=== PATIENT | female | born 1990 | race Caucasian/White ===

== ENCOUNTER 2018-01-07 12:11 | Emergency (ER) | payer OTHER, SELFPAY ==
[2018-01-07 12:12] VITALS: BP 100/60; PULSE 90; RESP 16; TEMP 36.3; O2SAT 99; BMI 24.7
--- NOTE | 2018-01-07 12:27 | CT_ITS ---
STUDY: CT ABDOMEN AND PELVIS WITH CONTRAST REASON FOR EXAM: Female, 27 years old. Right lower quadrant pain, nausea and vomiting. Patient is 33 weeks . RADIATION DOSAGE (If Supplied By Facility): CTDIvol = ( 9.23 ) mGy, DLP = ( 376.51 ) mGycm TECHNIQUE: Transaxial images were obtained from the dome of the diaphragm to the symphysis pubis with oral contrast. 100 ml of Isovue 300 contrast was administered. Sagittal and coronal images were reconstructed. Individualized dose optimization techniques were used for this CT. COMPARISON: None. FINDINGS: The visualized lung bases are unremarkable. The visualized portions of the heart are within normal limits. Normal liver. Normal gallbladder and extrahepatic biliary system. Normal spleen. Normal pancreas. Normal bilateral adrenal glands. Normal right kidney. Normal left kidney. Normal visualized stomach. Normal small intestine. Normal colon. The appendix is visualized and appears normal. Normal abdominal aorta. Normal inferior vena cava. Normal retroperitoneum. Normal urinary bladder. There is a single intrauterine fetus, with the head in the right upper abdomen. The bladder is identified. A small amount of fluid seen within the stomach. The placenta is anteriorly positioned. Normal abdominal wall. Normal osseous structures. CT/Abdomen/Pelvis WITH Contrast IMPRESSION: Single intrauterine . The appendix is normal. No bowel obstruction or acute renal pathology. Electronically Signed: Grzegorz Verdin DO at 14:51 EST Tel , Service support ,
[2018-01-07] MEDS: 0.9% Normal Saline 1,000 ML 125 ML IV (12:49)
[2018-01-07] MEDS: Ondansetron 4 MG/2 ML Vial IV (12:49)
[2018-01-07 12:53] LABS: Absolute Lymphocyte Count 1.43 X10^3/ul (0.83-4.51); Basophil# 0.01 X10^3/uL; Basophil% 0.1 % (0-1); Eosinophil# 0.05 X10^3/uL; Eosinophils% 0.7 % (0-5); Hematocrit 30.2 % (37-47); Hemoglobin 10.2 g/dl (12.0-15.0); Lymphocyte # 1.43 X10^3/ul (4.0); Mean Corp Hgb Conc 33.8 g/gl (32-36); Mean Corpuscular Hgb 30.4 pg (27.0-32.0); Mean Corpuscular Volume 90.1 fL (81-99); Mean Platelet Vol. 9.6 fl (6.2-12.0); Monocyte# 0.63 X10^3/uL; Monocyte% 8.8 % (0-10); Neutrophil # 4.99 X10^3/uL (2.7-7.7); Neutrophil % 69.7 % (47-70); Platelet Count 179 K/mm3 (150-450); RBC Distribution Width CV 13.5 % (11.6-14.6); RBC Distribution Width SD 43.7 fl (35.1-43.9); Red Blood Count 3.35 M/mm3 (4.2-5.4); White Blood Count 7.2 K/mm3 (4.4-11.0)
[2018-01-07 12:56] LABS: POSITIVE COUNT NO; POSITIVE DIFFERENTIAL NO; POSITIVE MORPHOLOGY NO
[2018-01-07 13:01] LABS: ALB/GLOB Ratio 0.7 RATIO (0.9-2.4); AST(SGOT) 12 U/L (15-37); Alanine Aminotransfer ALT/SGPT 13 U/L (13-56); Albumin, Serum 2.5 g/dL (3.2-5.0); Alkaline Phosphatase 82 U/L (45-117); Anion Gap 9 (5-15); BUN 4 mg/dL (7-18); BUN/Creat Ratio 7.4 RATIO (10-20); Calcium,Total 8.1 mg/dL (8.5-10.1); Chloride 107 mmol/L (98-107); Creatinine, Serum 0.54 mg/dL (0.55-1.02); EST Glomerular Filtration Rate 142 mL/min (>60); Est Glom Filt Rate - Afr Amer 172 mL/min (>60); Globulin 3.8 g/dL (2.2-4.2); Glucose 74 mg/dL (74-106); Lipase 143 U/L (73-393); Potassium 3.4 mmol/L (3.5-5.1); Protein, Total 6.3 g/dL (6.4-8.2); Sodium Level 139 mmol/L (136-145)
--- NOTE | 2018-01-07 13:04 | ED.VISSUMM ---
- ER Visit Summary Date of Service: 01/07/18 Chief Complaint: [Abdominal pain] History of Present Illness: The patient is a 27 F [presents with right lower quadrant abdominal pain ?2 days. Patient was seen at [facility] yesterday and had a urinalysis that showed questionable signs of urinary tract infection. Her urine was then sent for culture. No treatment was initiated. Patient also having vomiting. Patient states she had 3 episodes of watery stool yesterday but none since. Patient denies fever. Patient denies urinary symptoms. Patient is and currently 33 weeks .] Patient was seen by Dr. Luke in the office today who had concern for appendicitis therefore she was told to come to the emergency department as she would need a CT scan of her abdomen and pelvis. Dr. Luke did discuss risk versus benefit of CT scan with the patient and she understands and would like to proceed with obtaining the scan. Physical Examination: HEENT-PERRLA, EOMI. Cranial nerves II through XII grossly intact. TMs clear. Mucous membranes moist. No adenopathy. Cardiovascular-regular rate and rhythm without murmur or ectopy Lungs-clear to auscultation, chest wall stable without crepitus or subcu emphysema Abdomen-normoactive bowel sounds, soft, patient has tenderness over the right lower quadrant with guarding. Patient has a gravid uterus that is nontender. There is no rebound, rigidity, or peritoneal signs. Extremities-intact ?4, normal range of motion, normal pulses, atraumatic[] Test Results: [CBC with differential obtained showed a white blood cell count of 7.2, heme globin 10, hematocrit 30, platelets 179. Chemistries unremarkable. LFTs and lipase unremarkable. Urinalysis was unremarkable. CT scan of the abdomen and pelvis with IV and p.o. contrast showed a normal appendix and essentially nothing acute. Emergency Department Course and Treatment: [She was medicated with Zofran for her nausea. Patient did not want anything for pain.] Treatment Plan: [She will be given a prescription for Zofran and advised to follow-up with her TELEVISION NEWS VIDEO EDITOR within next 3-5 days.] Disposition: [Discharged to home in stable condition] Impression: [Abdominal pain-etiology uncertain] This note was generated with Purswayation software. It may contain incorrect words, spelling, and punctuation that were not noted in review of the chart prior to signing ED Disposition - Plan for ED Patient: Chief Complaint: Abd Pain Referrals: Care Physician,No Primary [Primary Care Provider] -
--- NOTE | 2018-01-07 13:07 | ED.DCSUM_ITS ---
- ER Visit Summary Date of Service: 01/07/18 Chief Complaint: [Abdominal pain] History of Present Illness: The patient is a 27 F [presents with right lower quadrant abdominal pain ?2 days. Patient was seen at [facility] yesterday and had a urinalysis that showed questionable signs of urinary tract infection. Her urine was then sent for culture. No treatment was initiated. Patient also having vomiting. Patient states she had 3 episodes of watery stool yesterday but none since. Patient denies fever. Patient denies urinary symptoms. Patient is and currently 33 weeks .] Patient was seen by Dr. Luke in the office today who had concern for appendicitis therefore she was told to come to the emergency department as she would need a CT scan of her abdomen and pelvis. Dr. Luke did discuss risk versus benefit of CT scan with the patient and she understands and would like to proceed with obtaining the scan. Physical Examination: HEENT-PERRLA, EOMI. Cranial nerves II through XII grossly intact. TMs clear. Mucous membranes moist. No adenopathy. Cardiovascular-regular rate and rhythm without murmur or ectopy Lungs-clear to auscultation, chest wall stable without crepitus or subcu emphysema Abdomen-normoactive bowel sounds, soft, patient has tenderness over the right lower quadrant with guarding. Patient has a gravid uterus that is nontender. There is no rebound, rigidity, or peritoneal signs. Extremities-intact ?4, normal range of motion, normal pulses, atraumatic[] Test Results: [CBC with differential obtained showed a white blood cell count of 7.2, heme globin 10, hematocrit 30, platelets 179. Chemistries unremarkable. LFTs and lipase unremarkable. Urinalysis was unremarkable. CT scan of the abdomen and pelvis with IV and p.o. contrast showed a normal appendix and essentially nothing acute. Emergency Department Course and Treatment: [She was medicated with Zofran for her nausea. Patient did not want anything for pain.] Treatment Plan: [She will be given a prescription for Zofran and advised to follow-up with her INSIDE SALES AGENT within next 3-5 days.] Disposition: [Discharged to home in stable condition] Impression: [Abdominal pain-etiology uncertain] This note was generated with Official Limited Virtualation software. It may contain incorrect words, spelling, and punctuation that were not noted in review of the chart prior to signing ED Disposition - Plan for ED Patient: Chief Complaint: Abd Pain Referrals: Care Physician,No Primary [Primary Care Provider] -
[2018-01-07 13:19] LABS: Pregnancy, Serum, hCG Quali. POSITIVE Negative (0-9 Nonpreg)
[2018-01-07 15:59] LABS: Bacteria 0 SEEN /hpf (None Seen); Mucous, Urine 0 SEEN /hpf (<or=2+); Red Blood Cells-Urine 0 SEEN /hpf (0-5)
[2018-01-07 16:08] LABS: Color, Urine Yellow (Yellow); Glucose, Dipstick Normal (Normal); Leukocyte Esterase-Dipstick 25 /ul (Negative); Nitrite-Dipstick Negative (Negative); Occult Blood-Urine Negative /ul (Negative); Protein-Dipstick Negative (Negative); Specific Gravity, Urine 1.005 (1.002-1.030); Urine Bilirubin Dipstick Negative (Negative); Urine Clarity Sl. Cloudy (Clear); Urine Urobilinogen Normal (Normal)
[2018-01-07 16:23] LABS: Ketone-Dipstick 150 mg/dl (Negative)
[2018-01-07 16:34] LABS: Squamous Epithelial Cells - UA 0-5 SEEN /hpf (5-10); White Blood Cells 0-5 SEEN /hpf (0-5)
--- NOTE | 2018-01-07 16:42 | ED.DEP ---
ED Disposition - Plan for ED Patient: Chief Complaint: Abd Pain Instructions: ED Abdominal Pain Unkn Cause Prescriptions: Ondansetron [Zofran Odt] 4 mg PO Q8H PRN PRN #10 tab PRN Reason: Nausea Referrals: Care Physician,No Primary [Primary Care Provider] - Stella Love MD [STAFF PHYSICIAN] - 3-5 Days
[2018-01-07 16:51] VITALS: BP 103/61; PULSE 61; RESP 14; O2SAT 99
== END 2018-01-07 16:52 | disposition home or self-care (01) ==
PROVIDERS: Emergency Provider Emergency Medicine
DX: O26.893 Other specified pregnancy related conditions, third trimester (principal); R10.31 Right lower quadrant pain; O99.333 Smoking (tobacco) complicating pregnancy, third trimester; Z3A.33 33 weeks gestation of pregnancy
CPT/HCPCS: 74177; 80053; 81001; 83690; 84703; 85025; 96361; 96374; 99283; J7030; Q9967; A4216; J2405

== ENCOUNTER 2018-02-19 07:09 | Inpatient (IN) | payer OTHER, SELFPAY ==
[2018-02-19 07:15] VITALS: BMI 25.0
--- NOTE | 2018-02-19 07:42 | PCM.HP.OB ---
History Date of Admission: 02/19/18 Final LEE: 02/25/18 Final LEE Source: LMP Gestational age: 39 Weeks and 1 Days Pertinent Past Medical History: @ 39.1 wks here for IOL due to IUGR <4%. PMH: Tobacco abuse, Abnormal pap, anxiety PSX: LEEP, D&C for first trimester sab. Allergies azithromycin [From Zithromax Z-Brayden] Allergy (Verified 01/07/18 12:50) Hives codeine Allergy (Verified 01/07/18 12:50) Hives Penicillins Allergy (Verified 01/07/18 12:50) Hives pseudoephedrine HCl [From Sudafed] Allergy (Verified 01/07/18 12:50) Hives Sulfa (Sulfonamide Antibiotics) Allergy (Verified 01/07/18 12:50) Hives sulfamethoxazole [From Bactrim] Allergy (Verified 01/07/18 12:50) Hives trimethoprim [From Bactrim] Allergy (Verified 01/07/18 12:50) Hives Smoking Status: Current every day smoker Alcohol: None Drug Use: marijuana - no use in Number of Fetus(es): 1 Physical Exam General: Alert, Oriented x3 Abdomen: Soft, Non Tender, Gravid Estimated gestational size: Small for gestational age Presentation: Cephalic Assessment/Plan 27yo @ 39.1 wks, IUGR <4% here for Induction of labor 1) admit to L&D 2) monitor FHR and toco 3) Pitocin and likely donald balloon for IOL 4) anticipate 5) Epidural if requested for pain 6) Labs reviewed- GBS neg, B+, HIV Neg, HEP B neg, rub imm, syphilis neg
[2018-02-19] MEDS: Lactated Ringers 1,000 ML 50 ML IV ×2 (09:30→16:28)
[2018-02-19] MEDS: Oxytocin 30 units/NS 500 ml 30 UNITS/500 ML IV.SOLN IV (09:30)
[2018-02-19 09:39] LABS: Hematocrit 30.2 % (37-47); Hemoglobin 10.1 g/dl (12.0-15.0); Mean Corp Hgb Conc 33.4 g/gl (32-36); Mean Corpuscular Volume 89.6 fL (81-99); Mean Platelet Vol. 10.4 fl (6.2-12.0); Platelet Count 190 K/mm3 (150-450); RBC Distribution Width CV 13.5 % (11.6-14.6); RBC Distribution Width SD 42.7 fl (35.1-43.9); Red Blood Count 3.37 M/mm3 (4.2-5.4); Scan Indicated on CBC? Y/N NO; White Blood Count 8.5 K/mm3 (4.4-11.0)
[2018-02-19 10:51] LABS: Amphetamine Urine VISTA NEGATIVE (<1000 ng/mL); Barbiturate Urine VISTA NEGATIVE (< 200 ng/mL); Benzodiazepine Urine VISTA NEGATIVE (< 200 ng/mL); Cocaine Urine VISTA NEGATIVE (< 300 ng/mL); Ecstacy Urine VISTA NEGATIVE (< 500 ng/mL); Methadone Urine VISTA NEGATIVE (< 300 ng/mL); PCP Urine VISTA NEGATIVE (< 25 ng/mL); THC Urine VISTA POSITIVE (< 50 ng/mL); Vista UDS pH Range 7
--- NOTE | 2018-02-19 12:24 | PCM.PN.BLA ---
Progress Note pt seen at bedside, doing well. VE: 3-/-2 AROM performed- clear fluid. IUPC placed. Continue pitocin- FHR reviewed cat 1 reactive. Anticipate
[2018-02-19] MEDS: Ondansetron 4 MG/2 ML Vial IV (17:20)
--- NOTE | 2018-02-19 17:20 | PLAC_PTH ---
PATIENT: CORRY CHOE LOC: [facility] U#:[id number] AGE/SX: 27/F ROOM: WP009 RE02/19/[address]: Dr. Gladis Otero, MDDOB: 1990 BED: 1 DIS: 02/21/2018 SPEC #: [id number] RECD: 02/19/18 23:10 STATUS: MILIND BALDEMAR #: [id number] JOCELYN: 02/19/18 17:[address]: Gladis Otero DEPT: SURGICAL PATHOLOGY RECD BY: Raza Lombardi ENTERED: 02/20/18 08:07 SP TYPE: PLACENTA OTHR DR: Dr. Stella Love MD No Primary Care Phys Tissues: Placenta, NOS Procedures: Surgery Specimen Level V HEADER OPERATION: Vaginal delivery PRE-OP DIAGNOSIS: IUGR TISSUE SUBMITTED: Placenta MICROSCOPIC DIAGNOSIS Placenta: Placental disc - third trimester placenta (287 gm). Membranes - no pathologic diagnosis. Umbilical cord - three blood vessels and no pathologic diagnosis. SJ:oriana 02/21/18 MICROSCOPIC DESCRIPTION Slides are reviewed. GROSS DESCRIPTION SPECIMEN: PLACENTA / CLINICAL INFORMATION: A. Weight: 2.587 kg B. Gestational Age: 39 weeks C. Sex: Male PLACENTAL WEIGHT (POST FIXATION): 287 gm PLACENTAL DIMENSIONS: 16 x 14 x 2.5 cm PLACENTAL SHAPE: Usual ovoid PLACENTAL WEIGHT FOR GESTATIONAL AGE: Under 10th percentile MEMBRANES - Present A. Insertion: Marginal B. Site of rupture from edge: 4.5 cm from edge of placental disc C. Color of membrane: Musa-deluna D. Abnormalities: None UMBILICAL CORD - Present A. Color: Musa-deluna B. Insertion: Eccentric C. Length: 33 cm D. Diameter: 1.5 cm E. Number of vessels: Three F. Abnormalities: None PLACENTAL DISC - Present A. Color of surface: Musa-deluna B. surface abnormalities: None C. Maternal cotyledons: Intact with minimal tears D. Attached retro placental clot: No clot E. Cut surface: Dark red and spongy F. Lesions: None G. Separate clot: Absent SECTIONS SUBMITTED: 1. Membrane roll and umbilical cord ( end notched) 2. Placental disc, and maternal surfaces 3. Placental disc, and maternal surfaces 4. Placental disc, and maternal surfaces AM:oriana 02/20/18 TC:5 CPT: 85179
[2018-02-19] MEDS: Oxytocin 30 units/NS 500 ml 30 UNITS/500 ML IV.SOLN 334 UNITS IV (19:15)
--- NOTE | 2018-02-19 19:21 | PCM.OB.VAG ---
Vaginal Delivery Maternal Presentation: Medically Indicated Induction Method of Induction: Pitocin, Amniotomy Medical Reason for Induction: Compromise: list: - IUGR Amniotic Membrane Rupture Type: Artificial Amniotic Fluid Description: Clear Final LEE: 02/25/18 Gestational age: 39 Weeks and 1 Days Date of Procedure: 02/19/18 Pre-Operative Diagnosis: IUGR, term gestation Post-Operative Diagnosis: male infant Surgery/ Procedure Performed: Spontaneous Vaginal Delivery Type of Anesthesia: Epidural Description of Procedure: of live male infant born without complication. Loose nuchal x 1- reduced prior to delivery. Delayed cord clamping performed Presentation: Vertex Placental Delivery Description: Spontaneous Placenta Disposition: [facility] Cord Vessel Description: 3 Vessels Nuchal Cord Compression: Without compression Cord Entanglement: Around neck x 1, loose Drain: Trinidad to straight drain Estimated Blood Loss: 100 A gender: Male (1 minute): 8 (5 minute): 9 Episiotomy Description: None Laceration: None Medications given after delivery: IV Pitocin Complications: None
[2018-02-19] MEDS: Oxytocin 30 units/NS 500 ml 30 UNITS/500 ML IV.SOLN 167 UNITS IV (19:45)
[2018-02-19] MEDS: Methylergonovine 0.2 MG/ML Ampul IM (20:25)
[2018-02-19] MEDS: 0.9% Saline Lock 10 ML Syringe IV (20:48)
[2018-02-19 21:18] VITALS: BP 106/57; PULSE 71; RESP 16; TEMP 36.5
--- NOTE | 2018-02-19 22:09 | NURSING ---
Bupivicaine epidural bag wasted for 52 ml, verified with WSpurlockRN
[2018-02-19 23:10] VITALS: BP 113/56; PULSE 85; RESP 18; TEMP 36.7
[2018-02-20 04:03] VITALS: BP 110/54; PULSE 61; RESP 16; TEMP 36.8
[2018-02-20] MEDS: Ibuprofen 600 MG Tablet PO ×2 (05:28→18:19)
[2018-02-20 08:20] VITALS: BP 105/56; PULSE 62; RESP 16; TEMP 36.6; O2SAT 99
[2018-02-20] MEDS: Prenatal Vits Tablet 1 TABLET PO (09:31)
[2018-02-20] MEDS: Acetaminophen 500 MG Tablet 1000 MG PO (09:37)
--- NOTE | 2018-02-20 10:05 | PCM.PN.OB ---
Subjective: pt seen at bedside, doing well. pt reports good pain control. lohcia mild. Breast feeding. - Physical Exam General: Alert, Oriented x3 Abdomen: Soft, Non-Distended, - - fundus firm Extremities: No Calf Tenderness Vital Signs Temp Pulse Resp BP Pulse Ox 97.9 F 62 16 105/56 L 99 02/20/18 08:20 02/20/18 08:20 02/20/18 08:20 02/20/18 08:20 02/20/18 08:20 Oxygen Delivery Method Room Air Weight: 58.06 kg Body Mass Index (BMI) 25.0 Intake and Output for Last 24 Hours 02/18/18 02/19/18 02/20/18 23:59 23:59 23:59 Intake Total 1021.4 / 1021.4 Output Total 1600 / 1600 850 / 850 Balance -578.6 / -578.6 -850 / -850 Laboratory Tests Past 24 Hrs 02/19/18 02/19/18 09:25 10:00 Urine Opiates Screen NEGATIVE Urine Methadone Screen NEGATIVE Ur Barbiturates Screen NEGATIVE Ur Phencyclidine Scrn NEGATIVE Ur Amphetamines Screen NEGATIVE U Methamphetamin-MDMA NEGATIVE U Benzodiazepines Scrn NEGATIVE Urine Cocaine Screen NEGATIVE U Cannabinoids Screen POSITIVE H Ur Drug Screen Comment Blood Type B POSITIVE Antibody Screen NEGATIVE Medical Necessity - Tobacco Use Smoking Status: Current every day smoker Assessment/Plan PPD#1, doing well routine care pain mgmt
--- NOTE | 2018-02-20 10:08 | DCINST_ITS ---
Discharge Diet: No Restrictions Discharge Activity: Return to Normal Activity, May not drive while taking narcotic pain medications., May Shower May resume sexual activity in: 4-6 weeks Additional Activity Instructions:: Nothing in the vagina for 4-6 weeks. You may return to work/school in 6 weeks. Call your doctor if your incision/area has: Continuous Slow Oozing, Sudden Increased Bleeding, Increased Pain/ Swelling, Increased Redness, Foul Smelling Discharge Additional Instructions: If you experience any of the following, contact your healthcare provider. * Bleeding that soaks a pad every hour for 2 hours * Fever 100.4 or higher * Unrelieved incision or abdominal pain * Swelling, redness, discharge or bleeding from your incision or episiotomy site * Your incision begins to separate * Problems urinating (including inability to urinate or burning while urinating) . * Visual changes * Severe headache * Flu-like symptoms * Pain or redness in one of both of your breasts * Pain, warmth, tenderness or swelling in your legs, especially the calf area * Frequent nausea and vomiting * Symptoms of depression or anxiety If you experience any of the following, call 911 or go to the nearest Emergency Room. * Chest pain * Problems breathing * Seizure activity * Partial or complete paralysis of a body part, slurred speech, weakness or drooping of the face, or a sudden inability to walk or hold your balance Allergies/Adverse Reactions: Allergies azithromycin [From Zithromax Z-Brayden] Allergy (Verified 02/19/18 10:43) Hives codeine Allergy (Verified 02/19/18 10:43) Hives Penicillins Allergy (Verified 02/19/18 10:43) Hives pseudoephedrine HCl [From Sudafed] Allergy (Verified 02/19/18 10:43) Hives Sulfa (Sulfonamide Antibiotics) Allergy (Verified 02/19/18 10:43) Hives sulfamethoxazole [From Bactrim] Allergy (Verified 02/19/18 10:43) Hives trimethoprim [From Bactrim] Allergy (Verified 02/19/18 10:43) Hives Medications to take at Discharge Vits [Prenatabs FA ] 1 tablet PO DAILY 07/20/15 Ibuprofen [Motrin] 800 mg PO Q8H PRN PRN #30 tab 02/20/18 The following prescriptions were given: Ibuprofen [Motrin] 800 mg PO Q8H PRN PRN #30 tab PRN Reason: Pain When: Call to make an appointment with your doctor in 6 weeks. If you had elevated Blood Pressure or 4th degree laceration you will need to be seen in 2 weeks. Primary Care Physician: Care Physician,No Primary [Primary Care Provider] -
[2018-02-20 12:10] VITALS: BP 94/59; PULSE 61; RESP 16; TEMP 36.2; O2SAT 100
[2018-02-20 16:03] VITALS: BP 102/58; PULSE 69; RESP 18; TEMP 36.6; O2SAT 99
[2018-02-20 21:00] VITALS: BP 91/47; PULSE 83; RESP 18; TEMP 36.6; O2SAT 100
[2018-02-21 02:57] VITALS: BP 114/59; PULSE 60; RESP 18; TEMP 36.1; O2SAT 97
[2018-02-21] MEDS: Ibuprofen 600 MG Tablet PO (03:06)
--- NOTE | 2018-02-21 08:05 | PCM.PN.OB ---
Subjective: pt seen at bedside, doing well. pt reports good pain control. lochia mild. Breast feeding. - Physical Exam General: Alert, Oriented x3 Abdomen: Soft, Non Tender, Non-Distended, - - fundus firm Extremities: No Calf Tenderness Vital Signs Temp Pulse Resp BP Pulse Ox 96.9 F L 60 18 114/59 L 97 02/21/18 02:57 02/21/18 02:57 02/21/18 02:57 02/21/18 02:57 02/21/18 02:57 Oxygen Delivery Method Room Air Weight: 58.06 kg Body Mass Index (BMI) 25.0 Intake and Output for Last 24 Hours 02/19/18 02/20/18 02/21/18 23:59 23:59 23:59 Intake Total 1021.4 / 1021.4 Output Total 1600 / 1600 850 / 850 Balance -578.6 / -578.6 -850 / -850 Medical Necessity - Tobacco Use Smoking Status: Current every day smoker Assessment/Plan PPD#2, doing well routine care dc home
[2018-02-21 09:30] VITALS: BP 107/61; PULSE 65; RESP 18; TEMP 36.9
--- NOTE | 2018-02-21 09:30 | CASEMGMT ---
Social Work Note Labor and Delivery Unit Social Work Assessment completed. Refer to documentation below for further details. Date of Referral: 02/20/2018 Time of Referral: 829 Referred By: verbal report from nursing Date of Intervention: 02/21/2018 Time of Intervention: 929 Reason for Referral: maternal use of marijuana, positive drug screen at time of delivery History obtained from: patient/mother of baby (MOB) and medical record Household composition: MOB, reported father of baby (FOB) Mello Dao, and MOBs two older children. MOB reports home situation is safe and adequate. Patient's parent/guardian status: MOB (age 27) reports has been with FOB (age 33) for 4 years now. Denies any form of abuse in relationship. MOB and FOB now have two children together, and MOB has one child from a previous relationship. MOBs oldest son, from previous relationship to Ángel Stout, is a son named Darrin Stout, age 6. MOB and FOB have daughter Marion, born 16 and Pacheco Shine born 02-19-18. Medical History: MOB is G4, P2 to 3 after delivering Pacheco. MOB with care starting at 9 weeks gestation Infant boron weighing 5 pounds 11 ounces, Apgars 8 and 9 at 1 and 5 minutes of life. Educational Status: MOB graduated high school and has some college classes done. MOB reports to be able to read and write, denies and learning or comprehension issues. Financial Status: MOB and FOB both work at [employer]. MOB reports financially to be doing fine. Infant Supplies: MOB reports to have needed infant supplies including car seat and bassinet. Childcare/Caregiver(s): MOB and FOB Transportation: No reported issues. Programs/Agencies Involved: MOB reports to be doing fine financially and denies need for any agency involvement. Children Services/Legal Issues: MOB reports involvement one time in the past, relating to the kids being around someone who was using drugs. MOB reports the case was closed shortly after opening, no legal action, and no concern about MOBs ability to care for children. Behavioral Health Issues: MOB reportedly with history of anxiety and treatment with Lexapro. MOB reports was on this medication prior to but stopped after finding about . MOB reports plan to restart medication. MOB denies any history of suicidal or homicidal ideation, plans, attempt or intent. MOB reports recreational marijuana usage history, but did use during for stress and nausea issues. MOB reports last use was 2 months ago. MOB denies other illicit drug use history. MOBs drug screen on admission was positive, 4-4-18. MOB reports to smoke a half a pack of cigarettes a day. MOB denies alcohol use or abuse issues. Babys urine drug screen at delivery is negative, and meconium is pending. Family/Social Stressors: MOB reports to be at odds right now with own parents, as MOBs parents have lied to MOB about MOBs brother being around when the kids were over. MOB reports that MOBs brother has drug issues, and MOB does not want children around. MOB reports MOBs mother does not understand what MOBs issue is if MOBs mother is around. For this reason, MOB is only allows MOBs parents to see the kids at MOBs home, which is causing stress. Support Systems: MOB reports FOB, FOBs mom and stepmom are all supportive and helpful. MOB reports supports is adequate. Depression/Shaken Baby/Safe Sleeping: Educated MOB to safe sleeping and shaken baby. MOB able to give appropriate answers. MOB educated to depression and anxiety, risks present, and importance of seeking support should symptoms arise. MOB denies depressive feelings at this time. ASSESSMENT: MOB cooperative, pleasant, talkative, and nondefensive during conversation. MOB seemed receptive to social work visit. MOB accepted social work education on possible children services involvement due to positive drug screen at delivery. MOB denies any needs at home going, reports will have help from FOB and FOBs family, reports to have needed baby supplies for baby. MOB denies intent to continue use of marijuana and reports intent to restart antidepressant medication in the period. PLAN: MOB and infant to home at discharge. Will be calling children services due to drug use in , positive drug screen at delivery and history of involvement with said agency. Provided MOB with pack on depression, as well as resource list for social service agencies in [facility] including mental health support. -TAY White, SEWAGE SCREEN OPERATOR
--- NOTE | 2018-02-21 12:00 | CASEMGMT ---
Social Work Labor and Delivery Called [facility] and spoke with Quin in the intake department. Referral due to maternal marijuana use in and MOBs reports of history with children services in the past. Let Quin know that MOB is positive and babys urine drug screen is negative, though not sure if this was the first urine. Meconium is pending. Quin made aware of discharge time frame. No reason to hold MOB and baby in the hospital. Quin asks that if babys drug screen results come back positive in meconium to call the agency back. Plan: MOB and baby to home. Resources given for [facility], including information about mental health issues. Monitor for meconium drug screen results. TAY White, STEERER
[2018-02-21 15:06] LABS: Pathology Specimen OB SEE PATHOLOGY REPORT
--- NOTE | 2018-03-14 15:11 | CASEMGMT ---
Social Work Note Labor and Delivery Unit Called [facility] today, based on new information received on lab results for baby. More detailed documentation in baby's chart, linked to this visit number. Spoke with Clementine at [facility]. No further services requested or indicated. -MICHAEL White, CRAPS DEALER
== END 2018-02-21 11:20 | disposition home or self-care (01) | DRG 775 ==
PROVIDERS: Admitting Provider Obstetrics & Gynecology; Visit Provider Obstetrics & Gynecology
DX: O36.5930 Maternal care for other known or suspected poor fetal growth, third trimester, not applicable or unspecified (principal); O69.81X0 Labor and delivery complicated by cord around neck, without compression, not applicable or unspecified; O99.334 Smoking (tobacco) complicating childbirth; Z3A.39 39 weeks gestation of pregnancy; Z37.0 Single live birth
CPT/HCPCS: 59025; 59050; 80307; 85027; 86850; 86900; 88307; 99218; J7120; A4216; G0378; J2405

== ENCOUNTER 2019-03-30 20:15 | Emergency (ER) | payer OTHER, SELFPAY ==
[2019-03-30 20:16] VITALS: BP 105/68; PULSE 95; RESP 16; TEMP 36.6; O2SAT 99; BMI 20.2
--- NOTE | 2019-03-30 21:25 | ED.DCSUM_ITS ---
- ER Visit Summary Date of Service: 03/30/19 Chief Complaint: Sore throat and earache History of Present Illness: The patient is a 29 F who presents for 2 days of a sore throat, bilateral earache, and pain and throbbing in the back of her head. Patient at onset had an episode of dizziness and vomited once. She then developed the throbbing pain in the back of her head, radiating around into her throat, with pain with swallowing. Also bilateral ear pain. She is tried Tylenol and ibuprofen without improvement. She has no medical problems. Does not take any prescription medications daily. She is a smoker. Physical Examination: Vital signs: afebrile, hemodynamically stable, no hypoxia on room air General: well nourished, well developed, in no distress Skin: Very warm, flushed, moist, no rash HEENT: normocephalic and atraumatic; PERRL, EOMI, moist mucous membranes, bilateral erythema of the tonsils with mild swelling, no exudate noted, neck is supple, full active range of motion, tender bilateral cervical lymphadenopathy, no meningismus, TMs are clear and pearly bilaterally Cardiovascular: regular rate and rhythm without murmurs, no peripheral edema, 2+ pulses all distal extremities Respiratory: No increased work of breathing, lungs are clear to auscultation bilaterally, no rales, rhonchi or wheezing Abdominal: Abdomen is soft, nontender MSK: Moves all extremities, no deformities, normal strength Neuro: Awake and alert, oriented ?4. No facial droop, sensation and motor function intact and symmetric Test Results: [ Microbiology Past 72 Hours 03/30/19 21:20 Mucosa - Throat Group A Streptococcus Rapid Screen - Final Streptococcus Group A Medications Given Discontinued Medications Acetaminophen (Tylenol) 1,000 mg PO X1 ONE Stop: 03/30/19 21:22 Last Admin: 03/30/19 21:28 Dose: 1,000 mg Amoxicillin (Amoxil) 500 mg PO X1 ONE Stop: 03/30/19 21:49 Dexamethasone (Decadron) 8 mg PO X1 ONE Stop: 03/30/19 21:22 Last Admin: 03/30/19 21:28 Dose: 8 mg Emergency Department Course and Treatment: Patient presents with a history and examination concerning for strep pharyngitis. Rapid strep was performed. Patient was given Decadron for her sore throat. She was given Tylenol for her headache. She had no measured fever on vital signs, however she was flushed and very warm, concerning for fever. Strep was positive. Patient states she is allergic to penicillin but she is not allergic to amoxicillin. She has had amoxicillin since she had a rash develop to penicillin. Thus patient was prescribed amoxicillin. She was given the first dose in the emergency department. She will continue Tylenol or ibuprofen as needed for fever and discomfort. Patient was given a work note. Discharged home with return precautions. Treatment Plan: [] Disposition: [] Impression: Acute strep pharyngitis This note was generated with [employer] dictation software. It may contain incorrect words, spelling, and punctuation that were not noted in review of the chart prior to signing ED Disposition - Plan for ED Patient: Disposition: Home or Assisted Living Instructions: ED Strep Pharyngitis Conf Prescriptions: Amoxicillin 500 mg PO BID #20 tab Referrals: Town Doctor,Out of [NON-STAFF] - 3-5 Days if not improving Additional Instructions: Please take the antibiotic twice daily as prescribed for the full 10 days, even if you feel better before it is complete. You were given a single dose of steroid in the emergency department. Please continue to use [id number] Tylenol or ibuprofen as needed for fever and discomfort. If you have any worsening of your condition or any new concerning symptoms, please return immediately to the emergency department for another evaluation.
[2019-03-30] MEDS: Acetaminophen 500 MG Tablet 1000 MG PO (21:28)
[2019-03-30] MEDS: dexAMETHasone 4 MG Tablet 8 MG PO (21:28)
[2019-03-30] MEDS: AMOXICILLIN 500 MG CAPSULE PO (21:52)
== END 2019-03-30 21:59 | disposition home or self-care (01) ==
PROVIDERS: Emergency Provider Emergency Medicine; Family Provider Family Medicine; PCP Family Medicine
DX: J02.0 Streptococcal pharyngitis (principal); F17.200 Nicotine dependence, unspecified, uncomplicated
CPT/HCPCS: 87880; 99283

== ENCOUNTER 2019-08-03 16:17 | Emergency (ER) | payer OTHER, SELFPAY ==
[2019-08-03 16:19] VITALS: BP 124/70; PULSE 92; RESP 18; TEMP 36.2; O2SAT 100; BMI 19.8
--- NOTE | 2019-08-03 16:31 | CT_ITS ---
STUDY: CT ABDOMEN AND PELVIS WITHOUT CONTRAST REASON FOR EXAM: Female, 29 years old. Right flank pain RADIATION DOSAGE (If Supplied By Facility): CTDIvol = ( 6.04 ) mGy, DLP = ( 273.31 ) mGycm TECHNIQUE: Transaxial images were obtained from the dome of the diaphragm to the symphysis pubis without oral contrast, and without intravenous contrast. Sagittal and coronal images were reconstructed. Individualized dose optimization techniques were used for this CT. COMPARISON: 01/07/2018 FINDINGS: The visualized lung bases are unremarkable. The visualized portions of the heart are within normal limits. Normal liver. Normal gallbladder and extrahepatic biliary system. Normal spleen. Normal pancreas. Normal bilateral adrenal glands. Normal right kidney. Normal left kidney. Normal visualized stomach. Normal small intestine. Normal colon. Appendix best seen on coronal recon image 38. Normal abdominal aorta. Normal inferior vena cava. Normal retroperitoneum. Normal urinary bladder. Normal abdominal wall. Normal osseous structures. CT/Abdomen/Pelvis without Cont IMPRESSION: No suspicious solid organ abnormality No free intraperitoneal fluid, air, or suspicious adenopathy No CT evidence of an acute inflammatory process, normal appendix visualized Electronically Signed: Christiano Allen MD at 17:52 EDT , Service support ,
[2019-08-03 16:41] LABS: Absolute Lymphocyte Count 1.61 X10^3/uL (0.83-4.51); Basophil# 0.03 X10^3/uL; Basophil% 0.6 % (0-1); Eosinophil# 0.04 X10^3/uL; Eosinophils% 0.7 % (0-5); Hematocrit 37.9 % (37-47); Hemoglobin 12.5 g/dL (12.0-15.0); Lymphocyte # 1.61 X10^3/ul (4.0); Lymphocyte % 29.5 % (19-41); Mean Corpuscular Hgb 30.3 pg (27.0-32.0); Mean Platelet Vol. 10.2 fl (6.2-12.0); Monocyte# 0.73 X10^3/uL; Monocyte% 13.4 % (0-10); NRBC Flagged by Analyzer 0 % (0-5); Neutrophil # 3.03 X10^3/uL (2.7-7.7); Neutrophil % 55.6 % (47-70); Platelet Count 193 K/mm3 (150-450); RBC Distribution Width CV 12.4 % (11.6-14.6); RBC Distribution Width SD 41.9 fl (35.1-43.9); Red Blood Count 4.12 M/mm3 (4.2-5.4); White Blood Count 5.5 K/mm3 (4.4-11.0)
[2019-08-03] MEDS: 0.9% Normal Saline 1,000 ML 250 ML IV (16:50)
[2019-08-03] MEDS: Ondansetron 4 MG/2 ML Vial IV (16:50)
[2019-08-03] MEDS: Ketorolac 30 MG/ML Syringe 15 MG IV (16:50)
--- NOTE | 2019-08-03 16:50 | ED.DCSUM_ITS ---
History of Present Illness Chief Complaint: Flank Pain Informant: Patient Onset: Today - Recurred today, Days - Initial episode July 31, that resolved. Patient reports severe right flank and right mid abdomen pain that started early this morning. Context: Sudden Onset Timing: Intermittent, Waxes and wanes Quality: Pain Location: Right flank and right mid abdomen Current Severity: Severe Maximum Severity: Severe Worsened by: Nothing specifically Relieved by: Nothing Associated Symptoms: Nausea and frequency Narrative: Patient is a 29-year-old woman who presents with abrupt onset of right flank and right abdominal pain that started Saturday. The pain resolved. The pain is returned. She denies history of renal or ureterolithiasis. The pain is wax and wane in nature. She does report frequency and nausea. She denies vomiting. She denies dysuria, frequency, urgency hematuria. She states her menses stopped last week. Her menses was normal for her. She is not on any form of control. She denies fever, chills or night sweats. She denies intolerance to greasy or fried foods. There is no history of cholelithiasis. There is no history of trauma. She denies respiratory symptoms. She denies history of STD. Prior similar symptoms: No Recent Illness/Hospitalization: No - Past Medical History (1) No significant past medical history Status: Acute Past Medical History - Allergies and Home Meds Allergies/Adverse Reactions: Allergies azithromycin [From Zithromax Z-Brayden] Allergy (Verified 08/03/19 16:19) Hives codeine Allergy (Verified 08/03/19 16:19) Hives Penicillins Allergy (Verified 08/03/19 16:19) Hives pseudoephedrine HCl [From Sudafed] Allergy (Verified 08/03/19 16:19) Hives Sulfa (Sulfonamide Antibiotics) Allergy (Verified 08/03/19 16:19) Hives sulfamethoxazole [From Bactrim] Allergy (Verified 08/03/19 16:19) Hives trimethoprim [From Bactrim] Allergy (Verified 08/03/19 16:19) Hives Primary Care Physician: Care Physician,No Primary [Primary Care Provider] - Past Medical History: None Surgical History: noncontributory Lives: With Family Smoking Status: Current every day smoker Alcohol: Rare Drugs: Marijuana Review of Systems General: Denies: Chills, Fever, Sweats Eyes: Denies: Visual changes - bilaterally, Diplopia ENT: Denies: Rhinorrhea, Sore throat Cardiovascular: Denies: Chest pain, Palpitations Respiratory: Denies: Dyspnea, Cough, Dyspnea on exertion Gastrointestinal: Reports: Abdominal pain, Nausea. Denies: Vomiting, Diarrhea, Constipation, Melena, Hematochezia, -, - Genitourinary: Reports: Frequency. Denies: Dysuria, Hematuria, -, - Musculoskeletal: Denies: Back pain, Extremity Pain Skin: Denies: Rash, Wounds Neurological: Denies: Headache, Weakness, Numbness Endocrine: Denies: Polyuria, Polydipsia Hematologic: Denies: Easy bruising, Easy bleeding Physical Exam Vital Signs/Narrative: Vital Signs Temp Pulse Resp BP Pulse Ox 08/03/19 16:19 97.1 F L 92 18 124/70 H 100 Inital Vital Signs reviewed: Yes General: Well nourished, Well developed, No Acute Distress Head: Normocephalic, Atraumatic Eyes: Perrl, EOMI ENT: Moist mucous membranes, No rhinorrhea Neck: Supple, Nontender Cardiovascular: Regular rate, Regular rhythm, No murmurs Respiratory: No distress, CTA bilaterally, Chest nontender Abdomen: Soft, Nondistended, Normal bowel sounds, Tender - Nurse to deep palpation over right kidney Back: Nontender, Normal Inspection, CVA tenderness - On the right side Extremities: Nontender, No edema Skin: Normal color, No rash Neurological: Alert, Oriented x3, Cranial nerves II-XII grossly intact, Normal Strength, Normal Sensation Psychological: Normal affect, Normal Mood Diagnostic/Tx/Re-eval Impressions Abdomen/Pelvis CT 08/03/19 16:31 IMPRESSION: No suspicious solid organ abnormality No free intraperitoneal fluid, air, or suspicious adenopathy No CT evidence of an acute inflammatory process, normal appendix visualized Electronically Signed: Christiano Allen MD at 17:52 EDT , Service support , 08/03/19 16:31 Abdomen/Pelvis without Cont [CT] Stat Laboratory Results 08/03/19 08/03/19 08/03/19 16:32 16:32 16:40 WBC 5.5 RBC 4.12 L Hgb 12.5 Hct 37.9 MCV 92.0 MCH 30.3 MCHC 33.0 RDW Std Deviation 41.9 RDW Coeff of [place] 12.4 Plt Count 193 MPV 10.2 Immature Gran % (Auto) 0.200 Neut % (Auto) 55.6 Lymph % (Auto) 29.5 [place] % (Auto) 13.4 H Eos % (Auto) 0.7 Baso % (Auto) 0.6 Absolute Neuts (auto) 3.0 Absolute Lymphs (auto) 1.61 Nucleated RBC % 0 Sodium 138 Potassium 3.5 Chloride 107 Carbon Dioxide 28.0 Anion Gap 3 L BUN 10 Creatinine 0.80 Estim Creat Clear Calc 74.53 Est GFR (MDRD) Af Amer 109 Est GFR (MDRD) Non-Af 90 BUN/Creatinine Ratio 12.5 Glucose 83 Calcium 8.8 Serum , Qual NEGATIVE Urine Color Urine Clarity Urine pH Ur Specific [place] Urine Protein Urine Glucose (UA) Urine Ketones Urine Occult Blood Urine Nitrite Urine Bilirubin Urine Urobilinogen Ur Leukocyte Esterase Urine RBC Urine WBC Ur Squamous Epith Cells Urine Bacteria Urine Mucus 08/03/19 16:40 WBC RBC Hgb Hct MCV MCH MCHC RDW Std Deviation RDW Coeff of [place] Plt Count MPV Immature Gran % (Auto) Neut % (Auto) Lymph % (Auto) [place] % (Auto) Eos % (Auto) Baso % (Auto) Absolute Neuts (auto) Absolute Lymphs (auto) Nucleated RBC % Sodium Potassium Chloride Carbon Dioxide Anion Gap BUN Creatinine Estim Creat Clear Calc Est GFR (MDRD) Af Amer Est GFR (MDRD) Non-Af BUN/Creatinine Ratio Glucose Calcium Serum , Qual Urine Color Yellow Urine Clarity Cloudy Urine pH 6.0 Ur Specific [place] 1.015 Urine Protein 100 H Urine Glucose (UA) Normal Urine Ketones Negative Urine Occult Blood 50 H Urine Nitrite Negative Urine Bilirubin Negative Urine Urobilinogen Normal Ur Leukocyte Esterase 500 H Urine RBC 5-10 SEEN Urine WBC 50-100 SEEN Ur Squamous Epith Cells 0-5 SEEN Urine Bacteria 1+ Urine Mucus 1+ CBC is unremarkable. Urine is consistent with infection. Since she has flank pain will treat for pyelonephritis since there is no evidence of renal or ureteral calculi on scan. - Medical Decision Making With abrupt onset of right flank pain that intermittent nature differential would include obstructing ureteral stone, cholelithiasis doubt Hakan-Aman Jaron syndrome. Abdominal pain of unknown etiology. Irritable bowel syndrome possible inflammatory bowel syndrome. Will obtain blood work, UA, test and CT of the abdomen and pelvis without contrast to evaluate for ureteral stone. Since symptoms started 3 days ago one would expect if there is evidence of inflammation i.e. appendicitis or inflammatory bowel there would be bad stranding/inflammatory changes. ED Disposition - Plan for ED Patient: Disposition: Home or Assisted Living Diagnosis: Pyelonephritis, acute Instructions: PYELONEPHRITIS, Female (Adult) Prescriptions: Ciprofloxacin [Cipro] 500 mg PO BID #14 tab Prescription Printed Referrals: Care Physician,No Primary [Primary Care Provider] - Additional Instructions: Up with your primary care physician in 2 to 3 days.
[2019-08-03 17:08] LABS: Color, Urine Yellow (Yellow); Glucose, Dipstick Normal (Normal); Ketone-Dipstick Negative (Negative); Leukocyte Esterase-Dipstick 500 /ul (Negative); Nitrite-Dipstick Negative (Negative); Occult Blood-Urine 50 /ul (Negative); Protein-Dipstick 100 mg/dl (Negative); Specific Gravity, Urine 1.015 (1.002-1.030); Urine Bilirubin Dipstick Negative (Negative); Urine Clarity Cloudy (Clear); Urine Urobilinogen Normal (Normal)
[2019-08-03 17:15] LABS: Anion Gap 3 (5-15); BUN 10 mg/dL (7-18); BUN/Creat Ratio 12.5 RATIO (10-20); Calcium,Total 8.8 mg/dL (8.5-10.1); Chloride 107 mmol/L (98-107); EST Glomerular Filtration Rate 90 mL/min (>60); Est Glom Filt Rate - Afr Amer 109 mL/min (>60); Estimated Creatinine Clearance 74.53 ml/min; Glucose 83 mg/dL (74-106); Potassium 3.5 mmol/L (3.5-5.1); Sodium Level 138 mmol/L (136-145)
[2019-08-03 17:21] LABS: Internal QC Validated? YES +Cl - CLEAR BKGD; Pregnancy, Serum, hCG Quali. NEGATIVE Negative
[2019-08-03 17:53] LABS: Bacteria 1+ /hpf (None Seen); Mucous, Urine 1+ /hpf (<or=2+); Red Blood Cells-Urine 5-10 SEEN /hpf (0-5); Squamous Epithelial Cells - UA 0-5 SEEN /hpf (5-10); White Blood Cells 50-100 SEEN /hpf (0-5)
[2019-08-03] MEDS: Ciprofloxacin 500 MG Tablet PO (18:08)
[2019-08-03 18:11] VITALS: BP 98/56; PULSE 57; RESP 14; O2SAT 100
== END 2019-08-03 18:12 | disposition home or self-care (01) ==
PROVIDERS: Emergency Provider Emergency Medicine
DX: N10 Acute pyelonephritis (principal); F17.200 Nicotine dependence, unspecified, uncomplicated
CPT/HCPCS: 74176; 80048; 81001; 84703; 85025; 96361; 96374; 96375; 99284; J7030; A4216; J2405

== ENCOUNTER 2023-01-24 06:09 | Day surgery (SDC) | payer MEDICAID, SELFPAY ==
--- NOTE | 2023-01-16 09:50 | PCM.HP.BLA ---
History and Physical Date of Admission: 01/16/23 HPI: The patient is a 32 year old female presenting for pre-operative visit. She is scheduled for laparoscopic bilateral salpingectomy, and Mirena IUD insertion for sterilization and heavy menses on 01/24/2023. Procedure discussed along with risks, benefits and complications. Other alternatives discussed for management. Consent form signed? Yes. ? ? PAST MEDICAL HISTORY PAST MEDICAL HISTORY Diagnosis Date ? Abnormal Pap smear of cervix 02/2009 ? Anemia during in third trimester 12/11/2017 ? Anxiety ? ? blood clot in thyroid 8th grade ? PTSD (post-traumatic stress disorder) 03/27/2022 ? Thyroid disease ? ? Tobacco use disorder complicating , childbirth, or puerperium, antepartum ? ? ? PAST SURGICAL HISTORY PAST SURGICAL HISTORY Procedure Laterality Date ? D&C (MISSED AB 1ST TRIMESTER) ? ? ? OFFICE LEEP ? 02/2009 ? Penelope/Mahesh ? PAST SURGICAL HISTORY OF ? 02/2005 ? partial thyroidectomy ? ? ? CURRENT MEDICATIONS Current Outpatient Medications Medication Sig Dispense Refill ? cholecalciferol (VITAMIN D3) 1,000 unit tab tablet Take 1 tablet by mouth once daily. 30 tablet 11 ? omeprazole (PRILOSEC) 20 mg capsule Take 1 capsule by mouth once daily. 30 capsule 2 ? No current facility-administered medications for this visit. ? ? ALLERGIES: Azithromycin, Bactrim [Sulfamethoxazole-Trimethoprim], Codeine, Penicillin, Pseudoephedrine, Sulfa (Sulfonamide Antibiotics), and Trimethoprim ? PERSONAL HISTORY: SOCIAL HISTORY Social History ? Tobacco Use ? Smoking status: Former ? ? Packs/day: 0.50 ? ? Years: 15.00 ? ? Pack years: 7.50 ? ? Types: Cigarettes ? ? Quit date: 07/19/2021 ? ? Years since quittin.4 ? Smokeless tobacco: Current Vaping Use ? Vaping Use: Some days ? Substances: Nicotine, Flavoring ? Devices: Disposable Substance Use Topics ? Alcohol use: Yes ? ? Comment: occasional ? Drug use: Yes ? ? Types: Marijuana ? ? Comment: marijuana socially 1-2 per month ? FAMILY HISTORY: FAMILY HISTORY FAMILY HISTORY Problem Relation Age of Onset ? Heart Mother ? ? Diabetes Father ? ? Heart Father ? ? Cancer Sister ? ? at age 4 ? Diabetes Paternal Grandfather ? ? Heart Maternal Uncle ? ? Breast Cancer Maternal Aunt ? ? ? REVIEW OF SYMPTOMS: GENERAL: denies fevers or chills ENDOCRINOLOGY: has not been on steroids Cardiology : denies palpitations or chest pain Respiratory: denies SOB or cough Hematology: denies history of prolonged bleeding or easy bruising or VTE Allergy: Denies history of personal or family history of allergy to anesthesia ? PHYSICAL EXAMINATION: ? VITALS: Blood pressure 106/60, pulse 91, resp. rate 16, height 5' (1.524 m), weight 126 lb (57.2 kg), last menstrual period 12/19/2022, SpO2 99 %. ? GENERAL: The patient is well nourished, well hydrated in no acute distress. , The patient is oriented to time, place, and person. NECK: Supple. No lynphadenopathy, normal thyroid, no thyromegaly. LUNGS: Clear to auscultation bilaterally. no wheezes, rhonchi or rales HEART: Regular rate and rhythm, Normal heart sounds, and No murmurs or gallops ? IMPRESSION: Sterilization request and heavy menses ? PLAN: The risks/benefits/alternatives and personal involved for the planned laparoscopic bilateral salpingectomy with Mirena IUD insertion were reviewed with the patient. Her questions were answered to her satisfaction and she desires to proceed. Consent was signed. I reviewed with her postop instructions and expectations. ? ? I have reviewed and updated past medical and surgical history, medications and allergies Assessment & Plan Assessment/Plan (1) Sterilization:
[2023-01-24 06:20] VITALS: BP 100/68; PULSE 80; RESP 16; TEMP 36.5; O2SAT 100; BMI 22.6
[2023-01-24 06:29] LABS: Internal QC Validated? YES +Cl - CLEAR BKGD; Pregnancy, Urine Negative Negative
[2023-01-24] MEDS: Lactated Ringers 1,000 ML 15 ML IV (06:40)
[2023-01-24] MEDS: Ketorolac 30 MG/ML Syringe IV (06:51)
[2023-01-24] MEDS: Acetaminophen 500 MG Tablet 1000 MG PO (06:51)
[2023-01-24 07:03] LABS: Hemoglobin 11.6 g/dL (12.0-15.0); Mean Corp Hgb Conc 33.1 g/dL (32-36); Mean Corpuscular Volume 90.4 fL (81-99); Mean Platelet Vol. 10.1 fl (6.2-12.0); Platelet Count 222 K/mm3 (150-450); RBC Distribution Width SD 42.3 fl (35.1-43.9); Red Blood Count 3.87 M/mm3 (4.2-5.4); White Blood Count 3.7 K/mm3 (4.4-11.0)
[2023-01-24 07:13] LABS: Partial Thromboplast Time 27.9 Seconds (24.1-36.2); Prothrombin Time (Protime)PT. 13.3 SECONDS (11.7-14.9)
[2023-01-24 07:21] LABS: AST(SGOT) 16 U/L (15-37); Alanine Aminotransfer ALT/SGPT 20 U/L (13-56); Albumin, Serum 3.5 g/dL (3.2-5.0); Alkaline Phosphatase 47 U/L (45-117); Globulin 3.8 g/dL (2.2-4.2); Protein, Total 7.3 g/dL (6.4-8.2)
--- NOTE | 2023-01-24 07:30 | FALS_PTH ---
PATIENT: CORRY CHOE LOC: [facility] [place] U#:[id number] AGE/SX: 32/F ROOM: RE01/24/[address]: Dr. Stella Love MD : 1990 BED: DIS: 01/24/2023 SPEC #: [id number] RECD: 01/24/23 10:03 STATUS: MILIND RERicky #: [id number] JOCELYN: 01/24/23 07:[address]: Stella Love DEPT: SURGICAL PATHOLOGY RECD BY: Nicolasa Santos ENTERED: 01/24/23 10:04 SP TYPE: FALL TUBES OTHR DR: Roseann Collins, KATHY Tissues: Fallopian tube Procedures: Surgery Specimen Level II HEADER OPERATION: Laparoscopic salpingectomy, Mirena IUD insertion PRE-OP DIAGNOSIS: Elective sterilization TISSUE SUBMITTED: Bilateral fallopian tubes MICROSCOPIC DIAGNOSIS Bilateral fallopian tubes, salpingectomy: Bilateral fallopian tubes, no pathologic diagnosis. SJ:oriana 01/25/2023 MICROSCOPIC DESCRIPTION Slides are reviewed. GROSS DESCRIPTION Received in fixative is one container labeled with the patient's name and designated bilateral fallopian tubes. The specimen consists of bilateral fallopian tubes including fimbrial ends measuring 6.5 cm in length and 0.1 cm in diameter and 6.0 cm in length and 0.1 cm in diameter. The fallopian tubes are not identified as right or left. One of the fallopian tubes show very minimal fimbrial end. Sections reveal unremarkable cut surfaces. Sales Order Processor sections are submitted in two cassettes. Cassette 2 contain the fallopian tube with possible minimal portion of fimbrial end. / KETAN:oriana 01/24/2023 TC:4 CPT: 45550 x2
--- NOTE | 2023-01-24 07:49 | DCINST_ITS ---
Discharge Instructions Diet Discharge Diet: No restrictions Activity Discharge Activity: May Drive (in 1-3 days as needed), May Shower (tomorrow) and May Take a Tub Bath (in 5 days) Return to work on:: 01/28/23 May shower in (days): 1 May resume sexual activity in: 1 week Dressing / Incision Call your doctor if your incision/area has: Continuous Slow Oozing, Sudden Increased Bleeding and Foul Smelling Discharge Call your doctor if you observe: Fever of 101 or Higher Cleanse incision/area with: Soap & Water (your incisions can get wet, they have skin glue, leave it on 10-14 days) Follow Up Care Please Follow Up With: Stella Love MD When: as needed. No postop appointment needed. [phone] Test Results: Test results from this visit will be discussed in further detail at your follow- up appointment, if applicable. Discharge Plan Admission Primary Reason for Your Visit: Tubal sterilization and IUd insertion Attending Provider: Stella Love Primary Care Provider: Roseann Collins NP Discharge Orders/Prescriptions Prescriptions: No Action bupropion HCl [Wellbutrin XL] 150 mg tablet extended release 24 hr 150 mg PO QAM Qty: 30 2RF cholecalciferol (vitamin D3) [Vitamin D3] 25 mcg (1,000 unit) Capsule 25 mcg PO DAILY Referrals / Follow Up: Roseann Collins NP, H[employer]ICULT[employer] TEACHER-C [Primary Care Provider] - Disposition Disposition (needs filled in before D/C Order can be placed): Home, Self Care
[2023-01-24] MEDS: Levonorgestrel IUD (Liletta) 1 EACH INTRA-UTER (08:03)
[2023-01-24] MEDS: Bupivacaine 0.5% PF 10 ML VIAL (08:18)
--- NOTE | 2023-01-24 08:23 | PCM.OPRPT ---
Problems Associated Problem List Diagnoses (1) Sterilization: Report of Operation Date of Procedure: 01/24/23 Pre-Operative Diagnosis: steriliziation request, menorrhagia Post-Operative Diagnosis: same Surgery/Procedure Performed:: Laparoscopic bilateral salpingectomy and Liletta IUD insertion Description of Surgical Findings:: normal cervix, uterus, tubes and ovaries Surgeon: Stella Love outpatient interviewing clerk: Cleveland Hull M3 Type of Anesthesia: General Anesthesiologist: Janice Fritz Special Medications: none Specimen's removed: bilateral fallopian tubes Drains: none Estimated Blood Loss (mL): 5cc Fluids Replaced: 700 Description of Procedure: The patient was taken to the operating room where she was prepped and draped in the dorsolithotomy position. A weighted speculum was placed in the vagina and the anterior lip of the cervix was grasped with a tenaculum. The Pamela uterine manipulator was placed and the remainder of the instruments were removed from the vagina. Attention was turned to the abdomen. All port sites were infiltrated with 0.5% Marcaine before skin incisions were made. A 5 mm intraumbilical incision was made. The anterior abdominal wall was tented up with 2 towel clamps while a 5 mm blade less trocar and sleeve were directly inserted. Intraperitoneal placement was confirmed with the laparoscope. The pneumoperitoneum was created and the underlying abdominal contents were intact. The patient was placed in Trendelenburg. Right and left lower quadrant ports were placed under direct visualization lateral to the inferior epigastric vessels. The bowel was swept away and the above findings were noted. The Enseal device was used to clamp seal and transect the antimesenteric portions of the right tube to the cornual insertion of the uterus. The tube was amputated from the uterus and the pedicles were all confirmed to be hemostatic. The same procedure was performed on the contralateral side. The specimens were brought out through a 5 mm port. The pedicles were again examined and found to be hemostatic. The lateral ports were removed under direct visualization and no active bleeding was noted. The pneumoperitoneum was released. The skin incisions were closed with Monocryl suture in a subcuticular fashion and skin glue. Attention was then turned to the vagina. The uterus sounded to 9 cm. It was anteverted. The Liletta IUD was inserted in the usual sterile fashion and deployed without difficulty. The strings were cut to 2 cm. The vaginal instruments were removed and the vaginal sweep was completed by me. The procedure was performed by me with assistance. All sponge and needle counts were correct and the patient was taken to the recovery room in stable condition. Grafts/Implants Used: none Procedure Start Time: 07:57 Procedure Stop Time: 08:27 Complications none Admit VTE Documentation VTE Present on Admission: No VTE Mechan Device Prophylaxis: SCD's VTE Pharm Prophylaxis ordered?: No Reason prophylaxis not ordered:: Procedure Not Indicated
[2023-01-24 08:37] VITALS: BP 100/68; BP 111/79; PULSE 61; RESP 18; TEMP 36.3; O2SAT 99
[2023-01-24 08:45] VITALS: BP 100/68; BP 106/60; PULSE 56; RESP 18; O2SAT 100
[2023-01-24 08:58] VITALS: BP 100/68; BP 105/67; PULSE 46; RESP 18; TEMP 36.4; O2SAT 100
[2023-01-24 09:15] VITALS: BP 100/68
[2023-01-24] MEDS: oxyCODONE 5 MG Tablet PO (09:24)
[2023-01-24 09:42] VITALS: BP 100/68; BP 97/60; PULSE 45; RESP 18; TEMP 36.8; O2SAT 99
== END 2023-01-24 10:02 | disposition home or self-care (01) ==
LOC: SDC 06:09 → AC 06:12
PROVIDERS: Anesthesiology; PCP Clinical Nurse Specialist; Referring Provider Obstetrics & Gynecology; Visit Provider Obstetrics & Gynecology
PROC: (CPT 58661; principal; 2023-01-24 07:15)
DX: Z30.2 Encounter for sterilization (principal); Z87.891 Personal history of nicotine dependence
CPT/HCPCS: 58661; 58300; 00840; 80076; 81025; 85027; 85610; 85730; 88302; J7120; C1760; J2405

== ENCOUNTER 2023-11-21 11:20 | Emergency (ER) | payer MEDICAID, SELFPAY ==
[2023-11-21 11:20] VITALS: BP 102/56; PULSE 81; RESP 16; TEMP 36.2; O2SAT 100; BMI 21.1
== END 2023-11-21 12:51 | disposition left against medical advice (07) ==
LOC: ED 13:10
PROVIDERS: PCP Clinical Nurse Specialist
DX: Z53.21 Procedure and treatment not carried out due to patient leaving prior to being seen by health care provider (principal)

== ENCOUNTER 2024-12-31 12:45 | Emergency (ER) | payer MEDICAID, SELFPAY ==
[2024-12-31 12:46] VITALS: BP 112/62; PULSE 93; RESP 16; TEMP 37; O2SAT 98; BMI 20.2
--- NOTE | 2024-12-31 13:40 | EDS_ITS ---
HPI History of Present Illness Chief Complaint: General Illness Detail of Chief Complaint: Headache and bodyaches and chills Informant: patient Narrative Narrative: Patient presents to the emergency department with complaint of headache and bodyaches and chills that all started last evening. Initially she started with a headache. She complains of photophobia and some nausea. No significant history of migraines. She has not had any falls or head injuries. Patient subsequently developed chills and sweats. She states her whole body hurts. Her ears hurt. Denies sore throat. Her son had a cough last week. PFSH PFSH Medical History Alcohol use Anxiety Cancer Concentration deficit Depression Easy bruising KALPANA (generalized anxiety disorder) Heartburn Leg cramps Low iron Marijuana use Migraine headache Shortness of breath on exertion Sterilization Vapes nicotine containing substance Home Medications ?Medication ?Instructions ?Recorded ?Last Taken ?Type NK 12/31/24 Unknown History Allergy/AdvReac Type Severity Reaction Status Date / Time azithromycin (From Zithromax Allergy Hives Verified 12/31/24 12:49 Z-Brayden) codeine Allergy Hives Verified 12/31/24 12:49 Penicillins Allergy Hives Verified 12/31/24 12:49 pseudoephedrine HCl (From Allergy Hives Verified 12/31/24 12:49 Sudafed) Sulfa (Sulfonamide Allergy Hives Verified 12/31/24 12:49 Antibiotics) sulfamethoxazole (From Allergy Hives Verified 12/31/24 12:49 Bactrim) trimethoprim (From Bactrim) Allergy Hives Verified 12/31/24 12:49 Family History Mother Mental disorder Suicide attempt Other Alcoholism Bleeding disorder Blood clot in vein Breast cancer Cancer Depression Diabetes Myocardial infarction Surgical History H/O partial thyroidectomy History of lobectomy of thyroid History of loop electrical excision procedure (LEEP) Social History Smoking Status: Current every day smoker tobacco type: e-cigarettes alcohol intake: current details: social maybe once a month what type of physical activity do you participate in: none ROS ROS ED Review of Systems ROS Unobtainable: other Constitutional Constitutional ED: Reports chills, lethargy and sweats; Denies fever(s) or weight loss Eyes Eyes: Denies blurry vision, change in vision or diplopia ENT ENT ED: Denies rhinorrhea or sore throat Cardiovascular Cardiovascular: Denies chest pain, orthopnea or racing heartbeat Respiratory/Chest Respiratory/Chest: Denies cough, dyspnea, dyspnea on exertion, orthopnea or sputum Gastrointestinal Gastrointestinal: Denies abdominal pain, diarrhea, nausea or vomiting Genitourinary Genitourinary ED: Denies dysuria, hematuria or urinary frequency Musculoskeletal Musculoskeletal: Reports myalgias; Denies arthralgias, back pain or neck pain Integumentary Denies abscess, Abrasions or rash Neurologic Neurologic: Reports headache(s); Denies weakness Psychiatric Psychiatric: Denies anxiety, depression or suicidal thoughts Endocrine Endocrinology: Denies polydipsia, polyphagia or polyuria Hematologic/Lymphatic Hematologic/Lymphatic: Denies easy bleeding, easy bruising or lymphadenopathy Allergic/Immunologic Allergic/Immunologic ED: Denies mouth swelling, tongue swelling or urticaria EXAM Physical Exam Const Vital Signs: 12/31/24 12:46 12/31/24 13:20 12/31/24 13:49 Temperature 98.6 F 98.6 F Temperature Source Oral Oral Pulse Rate 93 93 Respiratory Rate 16 16 Respiratory Effort Short of Breath Respiratory Pattern Normal Blood Pressure 112/62 112/62 Blood Pressure Mean 78 78 Pulse Ox 98 98 Oxygen Delivery Method Room Air Room Air Positive well nourished and well developed General Appearance ED: well developed and NAD HEENT Reports TM's clear and moist mucous membranes normocephalic and atraumatic; Negative for trauma or tenderness Tympanic Membrane ED: Yes TM's clear Eyes PERRL and EOMs intact bilaterally General Eye ED: Negative for pale conjunctiva or scleral icterus Neck no lymphadenopathy, supple and no JVD Neck Narrative: No nuchal rigidity General: Negative for tenderness Chest Wall inspection of chest normal and palpation of chest normal Chest: Negative for tenderness Resp normal respiratory effort and clear to auscultation bilaterally Effort and Inspection: Negative for respiratory distress or pain with movement Auscultation: Negative for rhonchi, wheezes or diminished lung sounds Cardio regular rate, regular rhythm, S1 normal heart sound, S2 normal heart sound and no murmurs Peripheral Pulses: pulses 2+ throughout GI normal to inspection, nondistended, normoactive bowel sounds, soft to palpation, non-tender, non-distended and no masses Back/Spine no CVA tenderness and no thoracic nor lumbar tenderness Extremity normal to inspection General Extremety ED: Negative for edema General Extremity: Negative for edema Neuro oriented x3, CN's II-XII intact bilaterally, no sensory deficits noted and gait normal Sensorium / Orientation: awake, alert, oriented to person, oriented to place and oriented to time Motor Exam: strength 5/5 throughout and strength abnormal Psych mental status grossly normal Skin no rashes or lesions noted and no wounds MDM MDM MDM Narrative Medical decision making narrative: Patient presents with headache as well as body aches and cough. Clinically looks well and is nontoxic-appearing. Patient was medicated with Toradol and Zofran. She had COVID flu and RSV testing that was positive for influenza A. Discussed treatment with Tamiflu and risks and benefits and she is opting not to take the Tamiflu. Patient advised to push fluids and use ibuprofen and Tylenol for discomfort. Discharge Plan Triage Chief Complaint: General Illness ED Provider: Mojgan Appiah Dx/Rx/DC Orders Clinical Impression: Influenza A Instructions: ED Influenza (Adult) Prescriptions: No Action NK Primary Care Provider: Roseann Collins BUSINESS TEST ANALYST Referrals: Roseann Collins BUSINESS TEST ANALYST, BUSINESS TEST ANALYST-C [Primary Care Provider] - 5-7 Days Print Language: Occitan Disposition Disposition: Home, Self Care
[2024-12-31 13:49] VITALS: BP 112/62; PULSE 93; RESP 16; TEMP 37; O2SAT 98
[2024-12-31] MEDS: Ondansetron ODT 4 MG Tablet PO (13:56)
[2024-12-31] MEDS: Ketorolac 60 MG/2 ML Vial IM (13:56)
== END 2024-12-31 14:49 | disposition home or self-care (01) ==
PROVIDERS: Emergency Provider Emergency Medicine; PCP Clinical Nurse Specialist; Referring Provider Emergency Medicine; Visit Provider Emergency Medicine
DX: J10.1 Influenza due to other identified influenza virus with other respiratory manifestations (principal); F17.290 Nicotine dependence, other tobacco product, uncomplicated; Z88.0 Allergy status to penicillin; Z88.2 Allergy status to sulfonamides; Z88.1 Allergy status to other antibiotic agents
CPT/HCPCS: 87631; 96372; 99283

== ENCOUNTER 2025-02-24 13:30 | Emergency (ER) | payer MEDICAID, SELFPAY ==
[2025-02-24 13:33] VITALS: BP 117/71; PULSE 70; RESP 18; TEMP 36.3; O2SAT 100; BMI 20.5
--- NOTE | 2025-02-24 13:49 | US_ITS ---
PROCEDURE: TRANSVAGINAL NON- (USTVAG), 02/24/2025 REASON FOR EXAM: IUD DISPLACEMENT, PELVIC PAIN TECHNIQUE: Grayscale and color/spectral doppler transvaginal pelvic ultrasound was performed. COMPARISON: None FINDINGS: Uterus: 8.5 x 5.1 x 3.5 cm, Anteverted. Unremarkable echotexture. Endometrium: 3 mm, echogenic secretory appearance. IUD in the expected location. Cervix: Unremarkable. Right ovary: 3.0 x 3.3 x 1.5 cm (estimated volume 7.8 mL), unremarkable. Normal low resistance arterial waveforms. Left ovary: 3.3 x 2.5 x 1.9 cm (estimated volume 8.0 mL), unremarkable. Normal low resistance arterial waveforms. Free fluid: Trace. Other: None. US/Transvaginal Non- IMPRESSION: 1. IUD in the expected location. If unexplained symptoms persist, consider CT. 2. Trace pelvic free fluid, potentially physiologic in this demographic. 3. Additional description as above. Reading Location: [id number]
--- NOTE | 2025-02-24 13:50 | ED.VIS.FEGU ---
HPI HPI - Female History of Present Illness Chief Complaint: Female C/O Narrative Narrative: 34-year-old female past medical history of IUD placed 2 years ago/Mirena by Dr. Love with [facility], presents with pelvic pain since yesterday at around 12:00. She relays history that she had intercourse, then developed vaginal bleeding which has lightened up. She states that anytime she turns to the right, she gets pelvic pain. She thinks that perhaps her IUD has been displaced from the uterus. She called the [facility], but they state that they are unable to see her for approximately 2 weeks so she presents to the emergency department with concern of IUD displacement. PFSH PFS Medical History Concentration deficit KALPANA (generalized anxiety disorder) Cancer Depression Anxiety Marijuana use Alcohol use Low iron Easy bruising Migraine headache Heartburn Shortness of breath on exertion Leg cramps Vapes nicotine containing substance Sterilization Home Medications ?Medication ?Instructions ?Recorded ?Last Taken ?Type NK 12/31/24 Unknown History Allergy/AdvReac Type Severity Reaction Status Date / Time azithromycin (From Zithromax Allergy Hives Verified 02/24/25 13:33 Z-Brayden) codeine Allergy Hives Verified 02/24/25 13:33 Penicillins Allergy Hives Verified 02/24/25 13:33 pseudoephedrine HCl (From Allergy Hives Verified 02/24/25 13:33 Sudafed) Sulfa (Sulfonamide Allergy Hives Verified 02/24/25 13:33 Antibiotics) sulfamethoxazole (From Allergy Hives Verified 02/24/25 13:33 Bactrim) trimethoprim (From Bactrim) Allergy Hives Verified 02/24/25 13:33 Family History Mother Mental disorder Suicide attempt Other Alcoholism Bleeding disorder Blood clot in vein Breast cancer Cancer Depression Diabetes Myocardial infarction Surgical History H/O partial thyroidectomy History of loop electrical excision procedure (LEEP) History of lobectomy of thyroid Social History Smoking Status: Current every day smoker tobacco type: e-cigarettes alcohol intake: current details: social maybe once a month what type of physical activity do you participate in: none ROS ROS ED ROS Narrative Review of systems positive for pelvic pain. Endorses vaginal bleeding which has improved. No fevers or chills, no nausea or vomiting. Pain in pelvis increased when turns to the right. No other exacerbating or alleviating factors. EXAM Physical Exam Narrative Exam Narrative: Afebrile. Vital signs noted. Nontoxic-appearing. Cardiovascular examination reveals a regular rate and rhythm. Lungs are clear to auscultation bilaterally. The abdomen is soft with mild suprapubic tenderness to palpation but no crepitance, no guarding or rebound. Positive bowel sounds. Neurological examination nonfocal, nonlateralizing. Const Vital Signs: 02/24/25 13:33 Temperature 97.4 F L Temperature Source Temporal Pulse Rate 70 Respiratory Rate 18 Blood Pressure 117/71 Blood Pressure Mean 86 Pulse Ox 100 Oxygen Delivery Method Room Air MDM MDM MDM Narrative Medical decision making narrative: Differential diagnosis includes but not limited to intrauterine device displacement versus vaginal tear/laceration versus breakthrough bleeding. Patient deferred pelvic exam initially and prefers ultrasound to look for position of intrauterine device. She states that she has not had menstrual period since the placement of her Mirena. Hence, I do not feel that she requires a test currently. I reviewed the radiology report of the transvaginal ultrasound and there is an IUD in the expected location. Upon repeat examination at approximately 1540, she is still having mild right lower quadrant/pelvic pain. As there is good flow to the ovaries, I doubt ovarian torsion. Radiology suggest CT imaging. With the concern for appendicitis now, I will obtain a CBC, BMP, serum test and urinalysis as well as CT imaging. Patient declines any stronger pain medications. At this point in time, the patient will be signed out to the oncoming physician, Dr. Sim Fox to check the laboratory results and the CT imaging, and make final disposition on this patient. I feel if she has a negative CT that she could be discharged to follow-up. Should she have an acute appendicitis, surgery should be consulted. Patient is in stable condition. History & Record Review Discussion w/independent historian: Patient Radiography Diagnostic Testing: Clinical Impression(s) from Imaging Studies Transvaginal US 02/24/25 13:49 IMPRESSION: 1. IUD in the expected location. If unexplained symptoms persist, consider CT. 2. Trace pelvic free fluid, potentially physiologic in this demographic. 3. Additional description as above. Reading Location: [facility] Discharge Plan Triage Chief Complaint: Female C/O ED Provider: Titi Fuentes Dx/Rx/DC Orders Clinical Impression: Right lower quadrant abdominal pain, Presence of IUD Prescriptions: No Action NK Primary Care Provider: Roseann Collins VARIETY SAW OPERATOR Referrals: Roseann Collins VARIETY SAW OPERATOR, VARIETY SAW OPERATOR-C [Primary Care Provider] - Print Language: Danish
[2025-02-24 15:31] VITALS: BP 112/66; PULSE 57; RESP 18; O2SAT 100
[2025-02-24 15:56] LABS: Absolute Lymphocyte Count 1.79 X10^3/uL (0.83-4.51); Absolute Neutrophil Count 5.1 X10^3/uL (2.0-7.7); Basophil# 0.05 X10^3/uL; Basophil% 0.7 % (0-1); Eosinophils% 1.3 % (0-5); Hematocrit 39.7 % (37-47); Hemoglobin 13.7 g/dL (12.0-15.0); Lymphocyte # 1.79 X10^3/ul (0.83-4.51); Lymphocyte % 23.3 % (19-41); Mean Corp Hgb Conc 34.5 g/dL (32-36); Mean Corpuscular Hgb 31.4 pg (27.0-32.0); Mean Corpuscular Volume 91.1 fL (81-99); Monocyte# 0.66 X10^3/uL; Monocyte% 8.6 % (0-10); NRBC Flagged by Analyzer 0 % (0-5); Neutrophil # 5.07 X10^3/uL (2.7-7.7); Platelet Count 221 K/mm3 (150-450); RBC Distribution Width CV 12.6 % (11.6-14.6); RBC Distribution Width SD 41.3 fl (35.1-43.9); Red Blood Count 4.36 M/mm3 (4.2-5.4); White Blood Count 7.7 K/mm3 (4.4-11.0)
[2025-02-24 16:12] LABS: Internal QC Validated? YES +Cl - CLEAR BKGD; Pregnancy, Serum, hCG Quali. NEGATIVE Negative
[2025-02-24 16:15] LABS: Bacteria 0 SEEN /hpf (None Seen); Mucous, Urine 0 SEEN /hpf (<or=2+); Red Blood Cells-Urine 0 SEEN /hpf (0-5); White Blood Cells 0 SEEN /hpf (0-5)
[2025-02-24 16:18] LABS: Color, Urine Yellow (Yellow); Glucose, Dipstick Normal (Normal); Ketone-Dipstick Negative (Negative); Leukocyte Esterase-Dipstick Negative /ul (Negative); Nitrite-Dipstick Negative (Negative); Occult Blood-Urine 10 /ul (Negative); Protein-Dipstick Negative (Negative); Urine Bilirubin Dipstick Negative (Negative); Urine Clarity Clear (Clear); Urine Urobilinogen Normal (Normal); Urine pH 6.5 (5.0 - 8.0)
--- NOTE | 2025-02-24 16:30 | CT_ITS ---
PROCEDURE: ABDOMEN/PELVIS W IV CONT ONLY 02/24/2025 REASON FOR EXAM: RLQ PAIN TECHNIQUE: Abdomen and pelvis CT with intravenous contrast. Coronal and Sagittal reconstruction series were provided. PATIENT PREPARATION: Per protocol ORAL CONTRAST TYPE: None. CONTRAST: Isovue-300 VOLUME: 99 mL Gauge IV One or more dose reduction techniques were used (e.g., Automated exposure control, adjustment of the mA and/or kV according to patient size, use of iterative reconstruction technique. RADIATION DOSE SUMMARY: CTDlvol: 13.3+ 6.58 mGy DLP: 308.94 mGycm COMPARISON: Ultrasound of same date FINDINGS: Exam is slightly limited by a relative lack of intraperitoneal and retroperitoneal fat, specifically limiting evaluation of the bowel and retroperitoneal structures. Lung bases: Unremarkable. Liver: Tiny area of likely focal steatosis along the anterior falciform, normal variant. Spleen: Unremarkable. Gallbladder: Unremarkable. Pancreas: Unremarkable. Adrenals: Unremarkable. Kidneys: Difficult to trace portions of the ureters. No hydronephrosis or definite ureteral calculus identified. Small RIGHT renal cyst. Bowel: Unremarkable. Normal caliber appendix. Lymph nodes: Unremarkable. Vasculature: Mildly prominent LEFT ovarian vein measures 5 mm, with prominent LEFT parauterine veins.. Peritoneum: Redemonstrated trace pelvic free fluid, again potentially physiologic in this demographic. Bladder: Borderline bladder wall thickening versus underdistention. Reproductive Organs: As above. IUD. Ill-defined soft tissue fullness associated with the cervix. Body Wall: Unremarkable. Bones: Unremarkable. CT/Abdomen/Pelvis W IV Cont ONLY IMPRESSION: 1. Borderline bladder wall thickening versus underdistention. Correlate for cy stitis. 2. Ill-defined soft tissue fullness associated with the cervix could be physiol ogic however recommend correlation with exam and up to date screening to exclude an underlying lesion. 3. Mild vascular findings which are nonspecific and frequently incidental but c an be seen in the setting of pelvic congestion syndrome given the appropriate clinical context. 4. Additional description as above. Reading Location: [id number]
[2025-02-24 16:53] LABS: Squamous Epithelial Cells - UA 0-5 SEEN /hpf (5-10)
[2025-02-24 16:57] LABS: Anion Gap 10 (5-15); BUN 8 mg/dL (4-19); BUN/Creat Ratio 10.7 RATIO (10-20); Calcium,Total 9.5 mg/dL (7.6-11.0); Carbon Dioxide 24.7 mmol/L (21.0-32.0); Chloride 103 mmol/L (98-108); Creatinine, Serum 0.77 mg/dL (0.70-1.20); EST Glomerular Filtration Rate 105 (>60); Estimated Creatinine Clearance 81.42 ml/min (50-250); Glucose 84 mg/dL (70-99); Sodium Level 137 mmol/L (133-145)
[2025-02-24 17:00] VITALS: BP 96/68; PULSE 67; RESP 14; O2SAT 100
--- NOTE | 2025-02-24 17:02 | EDS_ITS ---
HPI <Dr. Sim Fox, DO - Last Filed: 02/24/25 17:04> HPI - Female History of Present Illness Chief Complaint: Female C/O PFSH <Dr. Sim Fox, DO - Last Filed: 02/24/25 17:04> PFSH Medical History Concentration deficit KALPANA (generalized anxiety disorder) Cancer Depression Anxiety Marijuana use Alcohol use Low iron Easy bruising Migraine headache Heartburn Shortness of breath on exertion Leg cramps Vapes nicotine containing substance Sterilization Home Medications ?Medication ?Instructions ?Recorded ?Last Taken ?Type NK 12/31/24 Unknown History Allergy/AdvReac Type Severity Reaction Status Date / Time azithromycin (From Zithromax Allergy Hives Verified 02/24/25 13:33 Z-Brayden) codeine Allergy Hives Verified 02/24/25 13:33 Penicillins Allergy Hives Verified 02/24/25 13:33 pseudoephedrine HCl (From Allergy Hives Verified 02/24/25 13:33 Sudafed) Sulfa (Sulfonamide Allergy Hives Verified 02/24/25 13:33 Antibiotics) sulfamethoxazole (From Allergy Hives Verified 02/24/25 13:33 Bactrim) trimethoprim (From Bactrim) Allergy Hives Verified 02/24/25 13:33 Family History Mother Mental disorder Suicide attempt Other Alcoholism Bleeding disorder Blood clot in vein Breast cancer Cancer Depression Diabetes Myocardial infarction Surgical History H/O partial thyroidectomy History of loop electrical excision procedure (LEEP) History of lobectomy of thyroid Social History Smoking Status: Current every day smoker tobacco type: e-cigarettes alcohol intake: current details: social maybe once a month what type of physical activity do you participate in: none EXAM <Dr. Sim Fox, DO - Last Filed: 02/24/25 17:04> Physical Exam Const Vital Signs: 02/24/25 13:33 02/24/25 15:31 Temperature 97.4 F L Temperature Source Temporal Pulse Rate 70 57 L Respiratory Rate 18 18 Blood Pressure 117/71 112/66 Blood Pressure Mean 86 81 Pulse Ox 100 100 Oxygen Delivery Method Room Air Room Air <Titi Fuentes MD - Last Filed: 03/02/25 23:24> Physical Exam Const Vital Signs: 02/24/25 13:33 02/24/25 15:31 Temperature 97.4 F L Temperature Source Temporal Pulse Rate 70 57 L Respiratory Rate 18 18 Blood Pressure 117/71 112/66 Blood Pressure Mean 86 81 Pulse Ox 100 100 Oxygen Delivery Method Room Air Room Air MDM <Dr. Sim Fox DO - Last Filed: 02/24/25 17:04> [facility] Lab Data Labs: Laboratory Results - last 24 hr 02/24/25 02/24/25 15:46 16:05 WBC 7.7 RBC 4.36 Hgb 13.7 Hct 39.7 MCV 91.1 MCH 31.4 MCHC 34.5 RDW Std Deviation 41.3 RDW Coeff of Saturnino 12.6 Plt Count 221 MPV 10.0 Immature Gran % (Auto) 0.100 Neut % (Auto) 66.0 Lymph % (Auto) 23.3 O'Brien % (Auto) 8.6 Eos % (Auto) 1.3 Baso % (Auto) 0.7 Absolute Neuts (auto) 5.1 Absolute Lymphs (auto) 1.79 Nucleated RBC % 0 Sodium 137 Potassium 4.0 Chloride 103 Carbon Dioxide 24.7 Anion Gap 10 BUN 8 Creatinine 0.77 Estim Creat Clear Calc 81.42 Est GFR (MDRD) Non-Af 105 BUN/Creatinine Ratio 10.7 Glucose 84 Calcium 9.5 Serum , Qual NEGATIVE Urine Color Yellow Urine Clarity Clear Urine pH 6.5 Ur Specific Starkweather 1.010 Urine Protein Negative Urine Glucose (UA) Normal Urine Ketones Negative Urine Occult Blood 10 H Urine Nitrite Negative Urine Bilirubin Negative Urine Urobilinogen Normal Ur Leukocyte Esterase Negative Urine RBC 0 SEEN Urine WBC 0 SEEN Ur Squamous Epith Cells 0-5 SEEN Urine Bacteria 0 SEEN Urine Mucus 0 SEEN Radiography Diagnostic Testing: Clinical Impression(s) from Imaging Studies Transvaginal US 02/24/25 13:49 IMPRESSION: 1. IUD in the expected location. If unexplained symptoms persist, consider CT. 2. Trace pelvic free fluid, potentially physiologic in this demographic. 3. Additional description as above. Reading Location: [facility] Abdomen/Pelvis CT 02/24/25 16:30 IMPRESSION: 1. Borderline bladder wall thickening versus underdistention. Correlate for cys titis. 2. Ill-defined soft tissue fullness associated with the cervix could be physiologic however recommend correlation with exam and up to date screening to exclude an underlying lesion. 3. Mild vascular findings which are nonspecific and frequently incidental but can be seen in the setting of pelvic congestion syndrome given the appropriate clinical context. 4. Additional description as above. Reading Location: [facility] Treatment and Re-Evaluation Narrative: Care of this patient was turned over to me pending lab and CT results. CBC was reviewed and was within normal limits. Basic metabolic profile was reviewed and was within normal limits. Serum hCG was reviewed and was negative. Urinalysis was reviewed. There is no evidence of urinary tract infection or hematuria. CT scan of the abdomen and pelvis was obtained. There is an ill-defined soft tissue fullness associated with the cervix that could be physiologic. There is borderline bladder wall thickening. There is no evidence of appendicitis. There is no bowel obstruction or perforation noted. This was interpreted by the radiologist and was also independently reviewed by myself. Patient was advised of her findings. Patient was instructed to follow-up with her primary care physician in 5 to 7 days. Patient understood and was agreeable with plan. All questions were answered. <Titi Fuentes MD - Last Filed: 03/02/25 23:24> [facility] Narrative Medical decision making narrative: Differential diagnosis includes but not limited to ovarian cyst rupture versus ovarian torsion versus displaced IUD. Clinically have very low suspicion for acute appendicitis because history and physical does not support this. I reviewed the ultrasound report and the IUD is in place. Patient stated that she was still having moderate amount of pelvic pain. I discussed with her ordering labs and CT as radiology had suggested. These were ordered, and patient was signed out to the oncoming physician to make final disposition, after review of the laboratory work, UA, and CT report. Currently, patient is in stable condition. History & Record Review Discussion w/independent historian: Patient Lab Data Attestation: I reviewed the patient's lab results. Labs: Laboratory Results - last 24 hr 02/24/25 02/24/25 15:46 16:05 WBC 7.7 RBC 4.36 Hgb 13.7 Hct 39.7 MCV 91.1 MCH 31.4 MCHC 34.5 RDW Std Deviation 41.3 RDW Coeff of Saturnino 12.6 Plt Count 221 MPV 10.0 Immature Gran % (Auto) 0.100 Neut % (Auto) 66.0 Lymph % (Auto) 23.3 O'Brien % (Auto) 8.6 Eos % (Auto) 1.3 Baso % (Auto) 0.7 Absolute Neuts (auto) 5.1 Absolute Lymphs (auto) 1.79 Nucleated RBC % 0 Sodium 137 Potassium 4.0 Chloride 103 Carbon Dioxide 24.7 Anion Gap 10 BUN 8 Creatinine 0.77 Estim Creat Clear Calc 81.42 Est GFR (MDRD) Non-Af 105 BUN/Creatinine Ratio 10.7 Glucose 84 Calcium 9.5 Serum , Qual NEGATIVE Urine Color Yellow Urine Clarity Clear Urine pH 6.5 Ur Specific Stark[place] 1.010 Urine Protein Negative Urine Glucose (UA) Normal Urine Ketones Negative Urine Occult Blood 10 H Urine Nitrite Negative Urine Bilirubin Negative Urine Urobilinogen Normal Ur Leukocyte Esterase Negative Urine RBC 0 SEEN Urine WBC 0 SEEN Ur Squamous Epith Cells 0-5 SEEN Urine Bacteria 0 SEEN Urine Mucus 0 SEEN Radiography Diagnostic Testing: Clinical Impression(s) from Imaging Studies Transvaginal US 02/24/25 13:49 IMPRESSION: 1. IUD in the expected location. If unexplained symptoms persist, consider CT. 2. Trace pelvic free fluid, potentially physiologic in this demographic. 3. Additional description as above. Reading Location: [facility] Abdomen/Pelvis CT 02/24/25 16:30 IMPRESSION: 1. Borderline bladder wall thickening versus underdistention. Correlate for cystitis. 2. Ill-defined soft tissue fullness associated with the cervix could be physiologic however recommend correlation with exam and up to date screening to exclude an underlying lesion. 3. Mild vascular findings which are nonspecific and frequently incidental but can be seen in the setting of pelvic congestion syndrome given the appropriate clinical context. 4. Additional description as above. Reading Location: [id number] Discharge Plan Triage Chief Complaint: Female C/O ED Provider: Reodica,Titi Dx/Rx/DC Orders Clinical Impression: Right lower quadrant abdominal pain, Presence of IUD Instructions: ED Abdominal Pain Unkn Cause Fem Prescriptions: No Action NK Primary Care Provider: Roseann Collins NP Referrals: Roseann Collins STRAINER CLEANER, STRAINER CLEANER-C [Primary Care Provider] - 5-7 Days Print Language: Citizen Of [place] Disposition Disposition: Home, Self Care Discharge Date/Time: 02/24/25 17:15
== END 2025-02-24 17:15 | disposition home or self-care (01) ==
PROVIDERS: Emergency Provider Emergency Medicine; PCP Clinical Nurse Specialist; Visit Provider Emergency Medicine
DX: R10.31 Right lower quadrant pain (principal); Z97.5 Presence of (intrauterine) contraceptive device; F17.290 Nicotine dependence, other tobacco product, uncomplicated
CPT/HCPCS: 74177; 76830; 80048; 81001; 84703; 85025; 99282; Q9967; A4216